=== PATIENT | male | born 1985 | race African-American/Black ===

== ENCOUNTER 2016-07-05 16:38 | Emergency (ER) | payer SELFPAY ==
[2016-07-05 16:45] VITALS: PULSE 98; TEMP 99
[2016-07-05] MEDS ORDERED: ONDANSETRON 4 MG/2 ML VIAL IVP STA (17:03)
[2016-07-05] MEDS ORDERED: SODIUM CHLORIDE 0.9% 1,000 ML IV STA (17:03)
[2016-07-05 17:41] LABS: Basophils % (A) 0 %; CH 28.4; Eosinophils # (A) 0.4 k/uL (0-0.7); Eosinophils % (A) 6 %; HDW 2.23; HGB 15.9 gm/dL (13.0-17.5); Luc # (Auto) 0.15; Luc % (Auto) 2; Lymphocytes # (A) 1.3 k/uL (1.0-4.8); Lymphocytes % (A) 20 %; MCHC 32.4 g/dL (31.0-37.0); MCV 86.4 fL (80.0-100.0); Mean Platelet Volume 7.6; Monocytes # (A) 0.5 k/uL (0-1.0); Monocytes % (A) 7 %; Neutrophils # (A) 4.2 k/uL (1.3-7.7); Neutrophils % (A) 65 %; RBC 5.67 m/uL (4.30-5.90); RDW 13.3 % (11.5-15.5); WBC 6.4 k/uL (3.8-10.6); WBC (Perox) 6.53
[2016-07-05 17:47] LABS: ALT 38 U/L (21-72); AST 30 U/L (17-59); Alkaline Phosphatase 88 U/L (38-126); Amylase 63 U/L (30-110); Anion Gap 10 mmol/L; Blood Urea Nitrogen 13 mg/dL (9-20); Calcium 8.8 mg/dL (8.4-10.2); Carbon Dioxide 26 mmol/L (22-30); Chloride 104 mmol/L (98-107); Glucose 108 mg/dL (74-99); Non-African American GFR(MDRD) >60 (>60 ml/min/1.73 sqM); Potassium 4.1 mmol/L (3.5-5.1); Sodium 140 mmol/L (137-145); Total Bilirubin 0.7 mg/dL (0.2-1.3); Total Protein 7.4 g/dL (6.3-8.2)
[2016-07-05 17:49] LABS: Partial Thromboplastin Time 28.5 sec (22.0-30.0); Prothrombin Time 10.3 sec (9.0-12.0)
--- NOTE | 2016-07-05 18:01 | ED ---
Abdominal Pain HPI - General Chief Complaint: Abdominal Pain Stated Complaint: Vomiting Blood Time Seen by Provider: 07/05/16 17:03 Source: patient, RN notes reviewed Mode of arrival: ambulatory Limitations: no limitations - History of Present Illness Initial Comments: Patient is a 30-year-old male presenting to the with 1 day of 3 episodes of vomiting blood. Patient reports that he has had a few episodes of vomiting earlier in this week. She reports that he's also had a significant cough for the past few days. It is a smoker. He states he was coming to the consistency was concerned about the blood. Patient also reports he's had nosebleeds yesterday the day before. He reports that he has been using saline spray to prevent these nosebleeds. He denies any abdominal pain at this time. He denies any fever or chills. Patient denies any recent fever, chills, shortness of breath, chest pain, back pain, abdominal pain, nausea vomiting, numbness or tingling, dysuria or hematuria, constipation or diarrhea, headaches or visual changes, or any other current symptoms - Related Data Home Medications Medication Instructions Recorded Confirmed Ibuprofen [Advil] 200 mg PO Q8HR PRN 07/05/16 07/05/16 Previous Rx's Medication Instructions Recorded Ondansetron [Zofran] 4 mg PO Q8HR PRN #8 tab 07/05/16 predniSONE 50 mg PO DAILY #5 tab 07/05/16 Allergies Allergy/AdvReac Type Severity Reaction Status Date / Time cashew nut Allergy Unknown Verified 07/05/16 17:20 Childhood Review of Systems ROS Statement: Those systems with pertinent positive or pertinent negative responses have been documented in the HPI. ROS Other: All systems not noted in ROS Statement are negative. Past Medical History Past Medical History: No Reported History History of Any Multi-Drug Resistant Organisms: None Reported Past Surgical History: No Surgical Hx Reported Past Psychological History: No Psychological Hx Reported Smoking Status: Current every day smoker Past Alcohol Use History: None Reported Past Drug Use History: None Reported General Exam - General Exam Comments Initial Comments: Patient is a pleasant 30-year-old male. He does not appear to be in any acute distress. Limitations: no limitations General appearance: alert, in no apparent distress Head exam: Present: atraumatic, normocephalic, normal inspection Eye exam: Present: normal appearance, PERRL, EOMI. Absent: scleral icterus, conjunctival injection, periorbital swelling ENT exam: Present: normal exam, mucous membranes moist Neck exam: Present: normal inspection. Absent: tenderness, meningismus, lymphadenopathy Respiratory exam: Present: normal lung sounds bilaterally. Absent: respiratory distress, wheezes, rales, rhonchi, stridor Cardiovascular Exam: Present: regular rate, normal rhythm, normal heart sounds. Absent: systolic murmur, diastolic murmur, rubs, gallop, clicks GI/Abdominal exam: Present: soft, normal bowel sounds. Absent: distended, tenderness, guarding, rebound, rigid Extremities exam: Present: normal inspection, full ROM, normal capillary refill. Absent: tenderness, pedal edema, joint swelling, calf tenderness Back exam: Present: normal inspection Neurological exam: Present: alert, oriented X3, CN II-XII intact Psychiatric exam: Present: normal affect, normal mood Skin exam: Present: warm, dry, intact, normal color. Absent: rash Course Vital Signs 07/05/16 07/05/16 16:41 18:47 Temperature 99.0 F Pulse Rate 98 98 Respiratory 16 18 Rate Blood Pressure 146/79 164/89 O2 Sat by Pulse 98 98 Oximetry Medical Decision Making - Medical Decision Making She is a 30-year-old male presenting to the [facility] chief complaint of 1 day of the few episodes of hemoptysis and then emesis. Patient reports he's had increased nosebleeds over the past few days which is related to recent for his hemoptysis. Patient's labs were reviewed and are all negative at this time. Chest x-ray and abdominal x-ray are also negative for any acute process. Patient reports that he has had increased cough which is related to the hemoptysis. I will discharge the patient with the short course of steroids and nausea medication for his vomiting. Patient has been advised to follow-up with a primary care physician in regards to repeat chest x-ray in approximately 3-4 weeks to ensure there is no signs of cancer causing this and hemoptysis. - Lab Data Result diagrams: 07/05/16 17:28 07/05/16 17:28 Lab Results 07/05/16 07/05/16 07/05/16 Range/Units 17:28 17:28 17:28 WBC 6.4 (3.8-10.6) k/uL RBC 5.67 (4.30-5.90) m/uL Hgb 15.9 (13.0-17.5) gm/dL Hct 49.0 (39.0-53.0) % MCV 86.4 (80.0-100.0) fL MCH 28.0 (25.0-35.0) pg MCHC 32.4 (31.0-37.0) g/dL RDW 13.3 (11.5-15.5) % Plt Count 194 (150-450) k/uL Neutrophils % 65 % Lymphocytes % 20 % Monocytes % 7 % Eosinophils % 6 % Basophils % 0 % Neutrophils # 4.2 (1.3-7.7) k/uL Lymphocytes # 1.3 (1.0-4.8) k/uL Monocytes # 0.5 (0-1.0) k/uL Eosinophils # 0.4 (0-0.7) k/uL Basophils # 0.0 (0-0.2) k/uL PT 10.3 (9.0-12.0) sec INR 1.0 (<1.1) APTT 28.5 (22.0-30.0) sec Sodium 140 (137-145) mmol/L Potassium 4.1 (3.5-5.1) mmol/L Chloride 104 (98-107) mmol/L Carbon Dioxide 26 (22-30) mmol/L Anion Gap 10 mmol/L BUN 13 (9-20) mg/dL Creatinine 0.85 (0.66-1.25) mg/dL Est GFR (MDRD) Af Amer >60 (>60 ml/min/1.73 sqM) Est GFR (MDRD) Non-Af >60 (>60 ml/min/1.73 sqM) Glucose 108 H (74-99) mg/dL Calcium 8.8 (8.4-10.2) mg/dL Total Bilirubin 0.7 (0.2-1.3) mg/dL AST 30 (17-59) U/L ALT 38 (21-72) U/L Alkaline Phosphatase 88 (38-126) U/L Total Protein 7.4 (6.3-8.2) g/dL Albumin 4.5 (3.5-5.0) g/dL Amylase 63 (30-110) U/L Lipase 71 (23-300) U/L - Radiology Data Radiology results: report reviewed Chest x-ray recommended continued clinical slowed Phalen's. Stood symptoms persist in 3 weeks then repeat chest x-ray is recommended. Disposition Clinical Impression: Cough, Hematemesis with nausea Disposition: HOME SELF-CARE Condition: Good Instructions: Hematemesis (ED), Hemoptysis (ED) Additional Instructions: Patient instructed to complete steroid prescription and take nausea medication as needed. Patient instructed to follow-up with primary care physician about a repeat chest x-ray in approximately 3 weeks if continued symptoms. Patient is to follow-up with primary care as well in one to 2 days if symptoms continue to persist. Return to the [facility] if any alarming signs or symptoms occur. Prescriptions: Ondansetron [Zofran] 4 mg PO Q8HR PRN #8 tab PRN Reason: Nausea And Vomiting predniSONE 50 mg PO DAILY #5 tab Referrals: Garo Duggan MD [Primary Care Provider] - 1-2 days Time of Disposition: 18:36
--- NOTE | 2016-07-05 18:22 | XR ---
EXAMINATION TYPE: XR chest 2V DATE OF EXAM: 07/05/2016 5:39 PM COMPARISON: July 19, 2014 HISTORY: Hemoptysis, coughing TECHNIQUE: Frontal and lateral views of the chest are obtained. FINDINGS: There is no focal air space opacity, pleural effusion, or pneumothorax seen. The cardiac silhouette size is within normal limits. The osseous structures are intact. IMPRESSION: NO DEFINITE ACUTE PROCESS. Note: Would suggest continued clinical surveillance. Should symptoms persist in the next 3 weeks, th en repeat chest radiographic imaging is recommended
--- NOTE | 2016-07-05 18:23 | XR ---
EXAMINATION TYPE: XR KUB DATE OF EXAM: 07/05/2016 5:39 PM COMPARISON: NONE HISTORY: Cough and vomiting blood TECHNIQUE: 2 upright views FINDINGS: There is no bowel obstruction. No abnormal gas collections. Bones and soft tissues are unre markable. IMPRESSION: Negative examination.
[2016-07-05 18:48] VITALS: BP 164/89; RESP 18
== END 2016-07-05 18:48 | disposition home or self-care (01) ==
LOC: EC 16:38
DX: R05 Cough (principal); K92.0 Hematemesis; R11.0 Nausea; Z91.018 Allergy to other foods; F17.200 Nicotine dependence, unspecified, uncomplicated
CPT/HCPCS: 36415; 80053; 82150; 83690; 85025; 85610; 85730; 71020; 74000; 96374; 96361; 99284; J2405